=== PATIENT | female | born 1935 | race African-American/Black ===

== ENCOUNTER 2019-11-05 17:58 | Inpatient (IN) | payer MEDICARE, OTHER ==
[~2019-11-05] VITALS: Ht 167.6 cm; Wt 60.8 kg
[2019-11-05] MEDS ORDERED: SODIUM CHLORIDE 0.9% 1,000 ML IV ONE (18:30)
[2019-11-05] MEDS ORDERED: LEVETIRACETAM 1000MG/100ML 100 ML IV ONE (18:30)
[2019-11-05] MEDS ORDERED: LORAZEPAM 2MG/ML CPJ IV ONE (19:15)
[2019-11-05] MEDS ORDERED: LORAZEPAM 2MG/ML CPJ ONE (19:19)
[2019-11-05 20:40] LABS: BG BASE EXCESS 1.2 mmol/L (-2.0-2.0); BG CARBOXYHEMOGLOBIN 1.3 % (0.5-1.5); BG DEOXYHEMOGLOBIN 0.3 % (0.0-5.0); BG FRACTION INSPIRED OXYGEN 60; BG HCO3 ACT 26.5 mmol/L (22.0-26.0); BG METHEMOGLOBIN 0.4 % (0.0-1.5); BG OXYGEN SATURATION 99.7 % (92.0-98.5); BG PCO2 45.1 mmHg (35.0-45.0); BG PH 7.387 (7.350-7.450); BG PO2 303.9 mmHg (75.0-100.0); BG SAMPLE SITE RIGHT RADIAL; BG TOTAL HEMOGLOBIN 11.7 g/dL (12.0-18.0); BG VENT MODE MASK - SIMPLE
[2019-11-05 21:06] LABS: CLARITY URINE CLEAR (CLEAR); COLOR URINE YELLOW (YELLOW); KETONES URINE NEGATIVE (NEGATIVE); LEUKOCYTE ESTERASE URINE NEGATIVE (NEGATIVE); NITRITE URINE NEGATIVE (NEGATIVE); OCCULT BLOOD URINE NEGATIVE (NEGATIVE); PH URINE 6.5 (4.5-8.0); PROTEIN URINE 1+ (NEGATIVE); SPECIFIC GRAVITY URINE 1.017 (1.005-1.030); UROBILINOGEN URINE 0.2 E.U./dL (0.2-1.0)
[2019-11-05 21:37] LABS: *AMPHETAMINES SCREEN URINE NEGATIVE (NEGATIVE)
[2019-11-05 21:38] LABS: *BARBITURATES SCREEN URINE NEGATIVE (NEGATIVE); *BENZODIAZEPINES SCREEN URINE NEGATIVE (NEGATIVE); *COCAINE SCREEN URINE NEGATIVE (NEGATIVE); METHADONE URINE SCREEN NEGATIVE (NEGATIVE); OPIATES URINE SCREEN NEGATIVE (NEGATIVE); PHENCYCLIDINE URINE SCREEN NEGATIVE (NEGATIVE)
[2019-11-05 21:39] LABS: CANNABINOID URINE SCREEN NEGATIVE (NEGATIVE); CHLORIDE 104 mEq/L (98-107)
[2019-11-05 21:40] LABS: INR 1.3; PARTIAL THROMBOPLASTIN TIME 27.2 sec (23.4-31.0); PROTHROMBIN TIME 13.6 sec (9.6-11.0)
[2019-11-05 21:43] LABS: BASOPHILS % 0.2 % (0.0-2.0); ETHANOL BLOOD < 10 mg/dL; HEMATOCRIT. 33.8 % (36.0-48.0); HEMOGLOBIN. 10.8 g/dL (12.0-16.0); LYMPHOCYTES % 7.1 % (20.0-50.0); MEAN CORPUSCULAR HEMOGLOBIN 25.2 pg (28.0-32.0); MEAN CORPUSCULAR VOLUME 78.6 fL (81.0-99.0); MEAN PLATELET VOLUME 8.2 fl (7.4-10.4); MONOCYTES % 3.9 % (2.0-8.0); NEUTROPHILS % 88.8 % (40.0-76.0); PLATELET 250 x1000/uL (130-400); RED CELL DISTRIBUTION WIDTH 17.4 % (11.6-14.6)
[2019-11-05 21:47] LABS: CREATINE KINASE 154 IU/L (26-192)
[2019-11-05 21:50] LABS: CARBAMAZEPINE < 0.5 ug/mL (4-12); PHENOBARBITAL < 2.1 ug/mL (15.0-40.0); VALPROIC ACID < 3.0 ug/mL (50-100)
[2019-11-05 21:57] LABS: PLATELET ESTIMATE NORMAL
[2019-11-05] MEDS ORDERED: CEFTRIAXONE 1 G PREMIX 50 ML IV ONE (22:00)
[2019-11-05] MEDS ORDERED: HYDRALAZINE 20MG/ML VIAL IV ONE (22:15)
[2019-11-06] VITALS (8 sets, daily range): BP systolic 122–165; BP diastolic 64–93
[2019-11-06] MEDS ORDERED: LEVETIRACETAM 500 MG in SODIUM CHLORIDE 0.9% 100 ML IV SCH (02:15)
[2019-11-06] MEDS ORDERED: LORAZEPAM 2MG/ML CPJ IV PRN (02:15)
[2019-11-06] MEDS ORDERED: DEXT 5%/0.45% NACL KCL 20MEQ/L 1,000 ML IV SCH (04:00)
[2019-11-06] MEDS ORDERED: ONDANSETRON HCL 4MG/2ML INJ IV PRN (06:45)
[2019-11-06 07:31] LABS: BASOPHILS % 0.6 % (0.0-2.0); EOSINOPHILS % 0.2 % (0.0-5.0); HEMOGLOBIN. 10.3 g/dL (12.0-16.0); LYMPHOCYTES % 25.3 % (20.0-50.0); MEAN CORPUSCULAR VOLUME 77.7 fL (81.0-99.0); MEAN PLATELET VOLUME 7.6 fl (7.4-10.4); MONOCYTES % 14.9 % (2.0-8.0); PLATELET 242 x1000/uL (130-400); RED BLOOD CELL COUNT 4.13 mill/uL (4.2-5.4)
[2019-11-06 07:40] LABS: CHLORIDE 107 mEq/L (98-107)
[2019-11-06] MEDS: LEVETIRACETAM 500MG PREMIX 100 ML IV SCH ×2 (08:24→21:02)
[2019-11-06] MEDS ORDERED: ENOXAPARIN 40MG/0.4ML SYR SUBCUT SCH (09:00)
[2019-11-06] MEDS ORDERED: PANTOPRAZOLE SODIUM 40 MG/VIAL IV SCH (09:00)
[2019-11-06] MEDS ORDERED: POTASSIUM CHLORIDE 20MEQ TABLET SR PO NR (09:15)
[2019-11-06] MEDS ORDERED: HYDRALAZINE 20MG/ML VIAL IV PRN (10:15)
[2019-11-06] MEDS ORDERED: POTASSIUM CHLORIDE INJ 40 MEQ in DEXT 5% WATER 250 ML IV ONE (11:30)
[2019-11-06] MEDS ORDERED: LACTULOSE 20G/30ML UDC PO NR (16:00)
[2019-11-06] MEDS: AMLODIPINE 5MG TABLET PO SCH ×2 (21:00→21:06)
[2019-11-06] MEDS ORDERED: CEFTRIAXONE 1 G PREMIX 50 ML IV SCH (22:00)
== END 2019-11-06 21:42 | disposition short-term general hospital (02) | DRG 71 ==
LOC: ER 17:58 → 7WST 21:53 → EDBEDREQ 21:55 → EDBEDREQTM 21:55 → EDBEDREQ 22:17 → EDBEDREQTM 22:18 → EDBEDREQ 22:18 → ENRESERV 11-06 00:14
PROVIDERS: ADMIT Internal Medicine; ATTEND Internal Medicine
DX: G93.41 Metabolic encephalopathy (principal); E72.20 Disorder of urea cycle metabolism, unspecified; E87.2 Acidosis; G40.909 Epilepsy, unspecified, not intractable, without status epilepticus; D64.9 Anemia, unspecified; F03.90 Unspecified dementia, unspecified severity, without behavioral disturbance, psychotic disturbance, mood disturbance, and anxiety; I10 Essential (primary) hypertension
CPT/HCPCS: 36415; 36600; 70551; 71045; 80048; 80053; 80156; 80165; 80184; 80185; 80305; 80320; 81003; 82140; 82375; 82550; 82805; 82962; 83605; 83880; 84443; 84484; 85025; 87077; 87804; 93005; 96365; 96366; 96368; 96375; 99285; C9113; J0360; J0696; J1650; J1953; J2060; J3480; J7030; J7060; G0480

== ENCOUNTER 2020-02-06 18:27 | Emergency (ER) | payer MEDICARE, OTHER ==
[~2020-02-06] VITALS: Ht 172.7 cm; Wt 68.0 kg
[2020-02-06 21:56] LABS: BASOPHILS % 0.2 % (0.0-2.0); EOSINOPHILS % 0.2 % (0.0-5.0); HEMATOCRIT. 33.3 % (36.0-48.0); HEMOGLOBIN. 10.7 g/dL (12.0-16.0); LYMPHOCYTES % 12.2 % (20.0-50.0); MEAN CORPUSCULAR HEMOGLOBIN 25.4 pg (28.0-32.0); MEAN PLATELET VOLUME 7.3 fl (7.4-10.4); MONOCYTES % 4.8 % (2.0-8.0); NEUTROPHILS % 82.6 % (40.0-76.0); PLATELET 260 x1000/uL (130-400); RED BLOOD CELL COUNT 4.22 mill/uL (4.2-5.4)
[2020-02-06 22:03] LABS: CHLORIDE 106 mEq/L (98-107)
[2020-02-06 22:06] LABS: INR 1.1; PROTHROMBIN TIME 11.1 sec (9.6-11.0)
[2020-02-06 22:10] LABS: ETHANOL BLOOD < 10 mg/dL
[2020-02-06 22:14] LABS: CREATINE KINASE 178 IU/L (26-192)
[2020-02-06 23:36] LABS: CLARITY URINE CLEAR (CLEAR); COLOR URINE YELLOW (YELLOW); KETONES URINE 1+ (NEGATIVE); LEUKOCYTE ESTERASE URINE NEGATIVE (NEGATIVE); NITRITE URINE NEGATIVE (NEGATIVE); OCCULT BLOOD URINE TRACE (NEGATIVE); PROTEIN URINE 1+ (NEGATIVE); SPECIFIC GRAVITY URINE 1.017 (1.005-1.030)
[2020-02-06 23:45] LABS: *AMPHETAMINES SCREEN URINE NEGATIVE (NEGATIVE); *BARBITURATES SCREEN URINE NEGATIVE (NEGATIVE); *BENZODIAZEPINES SCREEN URINE NEGATIVE (NEGATIVE); *COCAINE SCREEN URINE NEGATIVE (NEGATIVE)
[2020-02-06 23:46] LABS: CANNABINOID URINE SCREEN NEGATIVE (NEGATIVE); METHADONE URINE SCREEN NEGATIVE (NEGATIVE); OPIATES URINE SCREEN NEGATIVE (NEGATIVE); PHENCYCLIDINE URINE SCREEN NEGATIVE (NEGATIVE)
[2020-02-07 05:58] VITALS: BP 156/69
[2020-02-07] MEDS ORDERED: ENALAPRIL 2.5MG/2ML VIAL 2ML IV ONE (06:00)
== END 2020-02-07 07:00 | disposition short-term general hospital (02) ==
LOC: ER 18:27
DX: F03.90 Unspecified dementia, unspecified severity, without behavioral disturbance, psychotic disturbance, mood disturbance, and anxiety (principal); G93.49 Other encephalopathy; I10 Essential (primary) hypertension; G40.909 Epilepsy, unspecified, not intractable, without status epilepticus
CPT/HCPCS: 36415; 70450; 71045; 80053; 80305; 80320; 80329; 81003; 82140; 82550; 82962; 83690; 83880; 84443; 84484; 85025; 85610; 93005; 96374; 99285; J3490; G0480